=== PATIENT | female | born 2000 | race Hispanic/Latino ===

== ENCOUNTER 2020-08-15 08:35 | Emergency (ER) | payer MEDICAID, OTHER ==
[2020-08-15] MEDS ORDERED: KETOROLAC TROMETHAMINE 15MG/ML ONE (08:52)
[2020-08-15 09:13] LABS: RAPID GROUP A STREP NEGATIVE (NEGATIVE)
[2020-08-15] MEDS ORDERED: ONDANSETRON ODT 4 MG TAB ONE (09:17)
== END 2020-08-15 09:40 | disposition home or self-care (01) ==
LOC: EDH 08:35
DX: B34.9 Viral infection, unspecified (principal); J02.9 Acute pharyngitis, unspecified; Z20.828 Contact with and (suspected) exposure to other viral communicable diseases
CPT/HCPCS: 87426; 87804 ×2; 87880; 96372; 99283; J1885; U0003

== ENCOUNTER 2020-11-11 22:51 | Emergency (ER) | payer OTHER ==
[2020-11-11] MEDS ORDERED: IBUPROFEN 400 MG TABLET ONE (23:24)
[2020-11-11] MEDS ORDERED: IBUPROFEN 200 MG TAB ONE (23:25)
[2020-11-11] MEDS ORDERED: CYCLOBENZAPRINE HCL 10 MG TABLET ONE (23:25)
== END 2020-11-12 00:21 | disposition home or self-care (01) ==
LOC: EDH 22:51
DX: S29.012A Strain of muscle and tendon of back wall of thorax, initial encounter (principal); V49.49XA Driver injured in collision with other motor vehicles in traffic accident, initial encounter; Y93.89 Activity, other specified; Y92.488 Other paved roadways as the place of occurrence of the external cause; Y99.8 Other external cause status
CPT/HCPCS: 72125

== ENCOUNTER 2021-03-26 20:49 | Emergency (ER) | payer MEDICAID, OTHER ==
[~2021-03-26] VITALS: Ht 157.5 cm; Wt 63.5 kg
[2021-03-26] MEDS ORDERED: ACETAMINOPHEN 500 MG TABLET ONE (20:57)
[2021-03-26] MEDS ORDERED: DEXAMETHASONE SOD PHOSPHATE 10MG/ML 1ML VIAL ONE (21:38)
[2021-03-26 22:00] VITALS: BP 112/67
== END 2021-03-26 22:01 | disposition home or self-care (01) ==
LOC: EDH 20:49
DX: J02.9 Acute pharyngitis, unspecified (principal); Z79.52 Long term (current) use of systemic steroids
CPT/HCPCS: 87880; 96372; 99283; J1100

== ENCOUNTER 2022-10-31 00:07 | Emergency (ER) | payer MEDICAID ==
[~2022-10-31] VITALS: Ht 160 cm; Wt 73.5 kg
[2022-10-31] MEDS ORDERED: 0.9%NACL 1000ML 1,000 ML IV SCH (01:00)
[2022-10-31 01:07] LABS: BASOPHILS % (AUTO) 0.6 % (0.0-5.0); EOSINOPHILS % (AUTO) 2.6 % (0.0-8.0); HEMATOCRIT 33.4 % (36-48); LYMPHOCYTES % (AUTO) 31.2 % (21.0-51.0); MEAN CORPUSCULAR HEMOGLOBIN 21.4 pg (27.0-33.0); MEAN CORPUSCULAR HGB CONC 29.3 g/dL (32.0-36.0); MEAN CORPUSCULAR VOLUME 72.8 fL (80-100); MONOCYTES % (AUTO) 6.1 % (3.0-13.0); NEUTROPHILS % (AUTO) 59.2 % (40.0-77.0); PLATELET COUNT (AUTO) 368 K/uL (130-400); RED BLOOD CELL COUNT(AUTO) 4.59 MIL/uL (4.00-5.50); WHITE BLOOD COUNT (AUTO) 7.8 K/uL (4.8-10.8)
[2022-10-31 01:12] LABS: APPEARANCE,URINE CLOUDY (CLEAR); BILIRUBIN,URINE NEGATIVE (NEGATIVE); COLOR,URINE LIGHT-ORANGE (YELLOW); GLUCOSE, URINE (UA) NEGATIVE (NEGATIVE); KETONES,URINE NEGATIVE (NEGATIVE); LEUKOCYTE ESTERASE ,URINE 75 Leu/uL (NEGATIVE); NITRATE,URINE NEGATIVE (NEGATIVE); OCCULT BLOOD,URINE LARGE (NEGATIVE); PROTEIN,URINE 30 mg/dL (NEGATIVE)
[2022-10-31 01:20] LABS: CREATININE 0.7 mg/dL (0.5-1.5); POTASSIUM 3.6 mmol/L (3.5-5.1)
[2022-10-31 01:25] LABS: ALBUMIN 3.7 g/dL (3.5-5.0); RBC,URINE TNTC /HPF (0-1); TOTAL PROTEIN, SERUM 8.1 g/dL (6.0-8.3)
[2022-10-31 01:54] VITALS: BP 105/63
== END 2022-10-31 02:02 | disposition home or self-care (01) ==
LOC: EDH 00:07
DX: E86.0 Dehydration (principal)
CPT/HCPCS: 99284; 84484; 80053; 85025; 86850; 86900; 86901; 87088; 81001; 81025; 36415; 93005; J7030